=== PATIENT | male | born 1955 | race Caucasian/White ===

== ENCOUNTER → 2018-02-06 | Outpatient (CLI) | payer BC ==
[~2018-02-06] MED LIST: AMLO5 PO; ATOR10 PO; FENO145 PO; METO100ER PO; Metformin HCl1000 MG PO; VALSARTAN-HCTZ1 EAC3 PO
[2018-02-06 12:58] LABS: Anion Gap 9 mmol/L (6-16); Blood Urea Nitrogen 10 mg/dL (8-24); Bun/Creatinine Ratio 11.5 (12.0-20.0); CO2, Blood 26 mmol/L (21-32); Chloride, Blood 102 mmol/L (98-108); Creatinine, Blood 0.87 mg/dL (0.60-1.20); Glomerular Filtration Rate >60 (60-); Glucose, Blood 152 mg/dL (70-99); Potassium, Blood 3.5 mmol/L (3.5-5.5); Sodium, Blood 137 mmol/L (136-145)
[2018-02-06 13:22] LABS: BASOPHILS ABSOLUTE AUTO 0.06 K/mm3 (0.00-0.23); BASOPHILS PERCENT AUTO 0 % (0-2); EOSINOPHILS ABSOLUTE AUTO 0.01 K/mm3 (0.00-0.68); EOSINOPHILS PERCENT AUTO 0 % (0-6); Hematocrit 41.5 % (37.0-53.0); Hemoglobin 14.2 g/dL (13.5-17.5); IMMATURE GRAN ABSOLUTE AUTO 0.11 K/mm3 (0.00-0.10); IMMATURE GRAN PERCENT AUTO 1 % (0-1); LYMPHOCYTES ABSOLUTE AUTO 1.85 K/mm3 (0.84-5.20); LYMPHOCYTES PERCENT AUTO 9 % (21-46); MONOCYTES PERCENT AUTO 8 % (4-13); Mean Corpuscular HGB 30.9 pg (26.0-34.0); Mean Corpuscular HGB Conc 34.2 g/dL (31.5-36.5); Mean Corpuscular Volume 90 fL (80-100); Mean Platelet Volume 10.1 fL (9.1-12.4); NEUTROPHILS ABSOLUTE AUTO 17.17 K/mm3 (1.96-9.15); NEUTROPHILS PERCENT AUTO 82 % (41-73); Platelet Count 236 K/mm3 (150-400); RDW Standard Deviation 42.5 fL (35.1-46.3)
== END | disposition home or self-care (01) ==
LOC: LAB 12:05 → LAB SHORT 12:05
PROVIDERS: Physician Assistant
DX: R50.9 Fever, unspecified (principal)
CPT/HCPCS: 80048; 83036; 85025; 87077; 87086; 87186

== ENCOUNTER → 2018-02-07 | Outpatient (CLI) | payer BC ==
[2018-02-07 11:39] LABS: BASOPHILS ABSOLUTE AUTO 0.06 K/mm3 (0.00-0.23); BASOPHILS PERCENT AUTO 0 % (0-2); EOSINOPHILS ABSOLUTE AUTO 0.06 K/mm3 (0.00-0.68); EOSINOPHILS PERCENT AUTO 0 % (0-6); Hematocrit 40.2 % (37.0-53.0); IMMATURE GRAN ABSOLUTE AUTO 0.09 K/mm3 (0.00-0.10); IMMATURE GRAN PERCENT AUTO 1 % (0-1); LYMPHOCYTES ABSOLUTE AUTO 1.86 K/mm3 (0.84-5.20); LYMPHOCYTES PERCENT AUTO 12 % (21-46); MONOCYTES ABSOLUTE AUTO 0.91 K/mm3 (0.16-1.47); MONOCYTES PERCENT AUTO 6 % (4-13); Mean Corpuscular HGB 31.3 pg (26.0-34.0); Mean Corpuscular HGB Conc 34.8 g/dL (31.5-36.5); Mean Corpuscular Volume 90 fL (80-100); NEUTROPHILS PERCENT AUTO 81 % (41-73); Platelet Count 213 K/mm3 (150-400); RDW Coefficient Variation 13.2 % (11.7-14.2); RDW Standard Deviation 43.5 fL (35.1-46.3); Red Blood Cell Count 4.48 M/mm3 (4.30-5.90); White Blood Cell Count 15.98 K/mm3 (4.00-11.30)
== END | disposition home or self-care (01) ==
LOC: LAB 11:02 → LAB SHORT 11:02
PROVIDERS: Physician Assistant
DX: R53.83 Other fatigue (principal)
CPT/HCPCS: 85025

== ENCOUNTER 2019-12-20 05:18 | Inpatient (IN) | payer BC, MEDICARE, OTHER ==
[~2019-12-20] VITALS: Ht 182.9 cm; Wt 125.5 kg
[2019-12-20 05:34] LABS: BASOPHILS ABSOLUTE AUTO 0.06 K/mm3 (0.00-0.23); BASOPHILS PERCENT AUTO 1 % (0-2); EOSINOPHILS PERCENT AUTO 2 % (0-6); Hematocrit 35.3 % (37.0-53.0); IMMATURE GRAN ABSOLUTE AUTO 0.05 K/mm3 (0.00-0.10); IMMATURE GRAN PERCENT AUTO 0 % (0-1); LYMPHOCYTES ABSOLUTE AUTO 2.62 K/mm3 (0.84-5.20); LYMPHOCYTES PERCENT AUTO 20 % (21-46); MONOCYTES ABSOLUTE AUTO 1.22 K/mm3 (0.16-1.47); MONOCYTES PERCENT AUTO 9 % (4-13); Mean Corpuscular HGB 31.1 pg (26.0-34.0); Mean Corpuscular Volume 92 fL (80-100); Mean Platelet Volume 9.5 fL (9.1-12.4); NEUTROPHILS PERCENT AUTO 68 % (41-73); Platelet Count 247 K/mm3 (150-400); RDW Coefficient Variation 12.9 % (11.7-14.2); RDW Standard Deviation 42.8 fL (35.1-46.3); Red Blood Cell Count 3.86 M/mm3 (4.30-5.90); White Blood Cell Count 12.95 K/mm3 (4.00-11.30)
[2019-12-20 05:58] LABS: Alanine Aminotransfer (ALT/SGP 20 U/L (12-78); Albumin, Blood 2.9 g/dL (3.4-5.0); Albumin/Globulin Ratio 0.7 (0.8-1.8); Alk Phos 43 U/L (50-136); Anion Gap 12 mmol/L (6-16); Aspartate Aminotrans (AST/SGOT 21 U/L (12-37); Bilirubin, Total 0.9 mg/dL (0.1-1.0); Blood Urea Nitrogen 16 mg/dL (8-24); Bun/Creatinine Ratio 20.9 (12.0-20.0); CO2, Blood 24 mmol/L (21-32); Calcium, Blood 8.4 mg/dL (8.5-10.1); Chloride, Blood 103 mmol/L (98-108); Creatinine, Blood 0.77 mg/dL (0.60-1.20); Glomerular Filtration Rate >60 (60-); Glucose, Blood 153 mg/dL (70-99); Potassium, Blood 2.7 mmol/L (3.5-5.5); Sodium, Blood 139 mmol/L (136-145); Total Protein, Blood 6.9 g/dL (6.4-8.2)
[2019-12-20 06:12] LABS: Troponin I 0.727 ng/mL (0.000-0.040)
[2019-12-20 06:15] LABS: Calcium, Ionized (POC) 1.05 mmol/L (1.10-1.46); Chloride (POC) 100 mmol/L (98-108); Creatinine (POC) 0.8 mg/dL (0.8-1.3); Glucose (ISTAT POC) 154 mg/dL (70-99); Hemoglobin (POC) 11.2 g/dL (13.5-17.5); Potassium (POC) 2.9 mmol/L (3.5-5.5); Sodium (POC) 138 mmol/L (135-148); Total CO2 (POC) 24 mmol/L (21-32)
[2019-12-20] MEDS ORDERED: MELO7.5 PO (08:06)
[2019-12-20] MEDS ORDERED: CANDESARTAN CIL32 MG PO (08:07)
--- NOTE | 2019-12-20 09:57 | NUR ---
ADMIT PT ARRIVED TO ICU 5, ALERT AND ORIENTED, ON NONREBREATHER BUT RT ARRIVED WITH PT TO SET UP AIRVO. PT GETS DYSPENIC WITH TALKING, BUT IS STILL ABLE TO TALK IN FULL SENTENCES. DR. MASSEY AT THE BEDSIDE. ULTRASOUND NOTIFIED THAT PT ARRIVED AND IS AVAILABLE FOR STUDIES. PT'S WAS WAITING IN THE LOUNGE. SPOKE WITH HER AND EXPLAINED CURRENT VISITING RESTRICTIONS. PROVIDED HER WITH CARD WITH ICU PHONE NUMBER AND ALSO PUT PT'S ROOM NUMBER IN THE WINDOW SO SHE CAN STOP BY AND SEE HIM IF SHE WANTS. PT'S ALSO PROVIDED PT'S CELL PHONE FOR HIM. SPOKE WITH DR. MASSEY AND RECEIVED ORDERS FOR POTASSIUM REPLACEMENT. PLAN IS TO MONITOR IONIZED CALCIUM FOR NOW, NO REPLACEMENT AT THIS TIME. DR. MASSEY EXPLAINED PLAN OF CARE FOR PT AND PT VERBALIZED UNDERSTANDING. CONTINUING TO MONITOR.
--- NOTE | 2019-12-20 12:48 | NUR ---
REASSESSMENT PT RESTING IN BED, JUST FINISHED SPEAKING WITH DR. APARICIO. PLAN IS FOR PT TO GO TO CLERICAL AIDE TEACHER THIS AFTERNOON. PT'S TO COME BY FOR QUICK VISIT BEFORE PT LEAVES. PT REMAINS DYSPNEIC AT REST BUT ABLE TO TALK IN FULL SENTENCES. HE DOES DESAT TO THE MID 80S WITH LOTS OF TALKING. SR TO ST WITH RATE IN THE 90-LOW 100S WITH FREQUENT PVCS AT TIMES. HTN WITH SBP 140-160S. VENOUS DUPLEX AND ECHO COMPLETE. PT BEING HELD NPO UNTIL PROCEDURE. CONTINUING TO MONITOR.
--- NOTE | 2019-12-20 13:32 | NUR ---
Echocardiogram using 0.50ml of Definity contrast performed.
--- NOTE | 2019-12-20 17:55 | NUR ---
PT BACK FROM ENGINEERING SYSTEMS ANALYST ABOUT 1700. R GROIN SITE WITH BILAT EKOS. HEPARIN AND TPA SET UP PER ORDERS. GROIN SITE C/D/I, SOFT, NO SIGNS OF HEMATOMA. PT REMAINS ON AIRVO AT 60L AND 95% WITH SPO2 94%. SR, BP STABLE, SEE VITALS. DR. APARICIO UPDATED PT'S AND PT CALLED HER HIMSELF WELL. LUNGS REMAIN CLEAR. PULSE STRONG TO R FOOT. CONTINUING TO MONITOR.
--- NOTE | 2019-12-20 20:00 | NUR ---
ASSUMED PT CARE FROM [facility] AT 1915 PT LYING SUPINE IN BED WITH 10F DUAL CATHETER SHEATH IN PLACE TO RIGHT GROIN FOR EKOS. HEPARIN INFUSING VIA BOTH PORTS AT 2.36 UNITS/KG/HR WITH A DOSING WEIGHT OF 127KG WITH AN INFUSION RATE OF 6MLS/HR, TPA INFUSING VIA BOTH PORTS AT 1MG/HR AT A RATE OF 10MLS/HR. NS INFUSING VIA BOTH COOLANT PORTS AT 35MLS/HR. SITE IS SOFT, NON-TENDER WITH NO OOZING OR HEMATOMA NOTED. PT DENIES ANY TENDERNESS. PT APPEARS TO BE ALERT AND ORIENTED AND ABLE TO MAKE NEEDS KNOWN. VERY PLEASANT AND COOPERATIVE WITH CARES. CALL LIGHT WITHIN REACH. WILL CONTINUE TO MONITOR.
[2019-12-21 02:18] LABS: Anion Gap 6 mmol/L (6-16); Blood Urea Nitrogen 17 mg/dL (8-24); Bun/Creatinine Ratio 27.7 (12.0-20.0); CO2, Blood 26 mmol/L (21-32); Calcium, Blood 7.8 mg/dL (8.5-10.1); Chloride, Blood 110 mmol/L (98-108); Creatinine, Blood 0.61 mg/dL (0.60-1.20); Glomerular Filtration Rate >60 (60-); Glucose, Blood 156 mg/dL (70-99); Potassium, Blood 3.1 mmol/L (3.5-5.5); Sodium, Blood 142 mmol/L (136-145)
[2019-12-21 02:22] LABS: BASOPHILS ABSOLUTE AUTO 0.08 K/mm3 (0.00-0.23); BASOPHILS PERCENT AUTO 1 % (0-2); EOSINOPHILS ABSOLUTE AUTO 0.25 K/mm3 (0.00-0.68); EOSINOPHILS PERCENT AUTO 3 % (0-6); Hematocrit 31.2 % (37.0-53.0); Hemoglobin 10.7 g/dL (13.5-17.5); IMMATURE GRAN ABSOLUTE AUTO 0.06 K/mm3 (0.00-0.10); IMMATURE GRAN PERCENT AUTO 1 % (0-1); LYMPHOCYTES ABSOLUTE AUTO 1.71 K/mm3 (0.84-5.20); LYMPHOCYTES PERCENT AUTO 19 % (21-46); MONOCYTES ABSOLUTE AUTO 0.82 K/mm3 (0.16-1.47); MONOCYTES PERCENT AUTO 9 % (4-13); Mean Corpuscular HGB 31.3 pg (26.0-34.0); Mean Corpuscular HGB Conc 34.3 g/dL (31.5-36.5); Mean Corpuscular Volume 91 fL (80-100); Mean Platelet Volume 9.8 fL (9.1-12.4); NEUTROPHILS ABSOLUTE AUTO 6.11 K/mm3 (1.96-9.15); NEUTROPHILS PERCENT AUTO 68 % (41-73); Platelet Count 219 K/mm3 (150-400); RDW Standard Deviation 43.1 fL (35.1-46.3); Red Blood Cell Count 3.42 M/mm3 (4.30-5.90); White Blood Cell Count 9.03 K/mm3 (4.00-11.30)
--- NOTE | 2019-12-21 05:15 | NUR ---
END OF SHIFT SUMMARY NO SIGNIFICANT CHANGES SINCE LAST ENTRY. PT REMAINS ON EKOS WITH RIGHT GROIN SHEATH INFUSING HEPARIN 3.1 UNITS/KG/HR; RATE 6MLS/HR, TPA 0.5 MG/HR, AND NS 35MLS/HR THROUGH EACH PORT. SITE HAS REMAINED SOFT, NON-TENDER, WITH MODERATE SEROSANGUINEOUS DRAINAGE NOTED ON GAUZE DRESSING. RIGHT PEDAL PULSE REMAINS PALPABLE AND STRONG. PT HAS DENIED ANY PAIN/DISCOMFORT. AIRVO REMAINS AT 50L/MIN WITH 48% FIO2; BIOX REMAINED MID TO HIGH 90'S; RESP RATE HAS BEEN 20'S. PT BECOMES TACHYPNEIC AND SOB WITH EXERTION, ESPECIALLY WITH TURNING/REPOSITIONING FOR BEDPAN USE. HOWEVER, OXYGEN SATURATIONS REMAIN STABLE AND PT QUICKLY RECOVERS. LUNG SOUNDS HAVE REMAINED CLEAR T/O ALL LOBES THIS SHIFT. NSR WITH BBB; HR 70-90'S. BP'S STABLE; SEE FLOWSHEET. PT HAS HAD TWO LOOSE STOOLS THIS SHIFT; HELD DSS. VOIDS WITH URINAL; DARK CHARLES COLORED URINE. PT HAS REMAINED ALERT AND ORIENTED X4; ABLE TO COMMUNICATE NEEDS. NO FACIAL DROOP OR SLURRED SPEECH NOTED. PUPILS REMAIN EQUAL, ROUND, AND REACTIVE TO LIGHT; 4MM. LEFT ARM REMAINS IN IMMOBILIZER. AQUACEL DRESSING IS CDI TO LEFT SHOULDER. PT STATES IT IS NOT TO BE REMOVED UNTIL FOLLOW UP APPT WITH SURGEON AT [facility]. PT STATED HE WOULD UTILIZE CALL LIGHT TO REQUEST REPOSITIONING WHEN NEEDED. HE IS ABLE TO SLIGHTLY SHIFT HIS OWN HIPS; HOWEVER, PT HAS BEEN ASSISTED WITH BEDPAN AND URINAL T/O NIGHT, WELL BOOSTED IN BED NEEDED. SEE ADL CHARTING. CALL LIGHT WITHIN REACH; PT ABLE TO DEMONSTRATE ADEQUATE USE OF CALL LIGHT. WILL CONTINUE TO MONITOR UNTIL REPORT IS HANDED OFF TO ONCOMING RN.
--- NOTE | 2019-12-21 09:13 | NUR ---
[place] of Care: Care assumed at 0700hr. Patient sleeping, but easily roused to verbal stimuli. Alert and oriented x4. Denies pain, discomfort, SOB, or dyspnea. SpO2-97-100% on Airvo NC at 50L/48%. Plan to decrease Airvo FiO2 and flow this morning and switch to NC as tolerated. Eko's infusing to rt femoral arterial access site. Rt femoral arterial line contains x2 ports, each infusing with TPA, Heparin, and NS. Dosing of medications to rt femoral line confirmed with EMAR and NOC shift RN. Rt femoral site soft, no s/s of active bleeding, but very slowly oozing serosanguineous fluid, dressing remains intact. Peripheral IV's x2 patent and intact. Call light in reach, makes needs known. Requires assist with bedpan or urinal in bed. Immobilizing sling to lt arm (r/t shoulder surgery 11/18) in place. Also Aquacel dressing in place to lt shoulder, dressing C/D/I. Call placed to Dr. Worthy this morning to confirm scheduled Lovenox injection. Received instructions to give scheduled Lovenox injection, also informed that Dr. Worthy plans to remove Ekos's catheter in patient room at approx 1000hr.
--- NOTE | 2019-12-21 16:45 | NUR ---
Shift Summary/ Transfer to PCU: Dr. Ham to room at approx 1200hr to remove Echo's catheter from rt groin. Catheters removed without difficulty, then instructed to wait 1hr to remove venous sheath. Rt femoral venous sheath then removed at approx 1310hr. Direct pressure held to site for 10min, but showed large amount of bleeding when pressure relieved. Direct pressure then held for 20min, gauze and clear occlusive dressing left in place. No s/s of bleeding or hematoma from site for remainder of time in ICU. Received order to transfer patient to PCU per Dr. Atnunez. Bed assignment received from Xi STEWART, PCU 16. Report called to Shannen STEWART in PCU. Patient then transferred via bed to PCU 16 at 1635hr. Rt groin site visualized/assessed with MULTI LINE CLAIMS ADJUSTER, site remains stable. belonging's sent with patient to new room.
--- NOTE | 2019-12-21 18:53 | NUR ---
SHIFT NOTE PT ARRIVED FROM ICU THIS EVENING WITH PE. PT HAD ECOS REMOVED THIS AFTERNOON, THERE IS GUAZE AND TEGADERM APPLIED TO SITE. THERE IS SOME BLOOD TO GAUZE, BUT PER CLAUDIA FROM ICU THE BLOOD HAS NOT INCREASED. THERE IS SOME SLIGHT FIRMNESS TO SKIN AROUND ECOS SITE, NO BRUISING. PT RESTING WELL IN BED. VSS. DENIES CP AND SOB. PT ON RA AT THIS TIME
--- NOTE | 2019-12-22 06:28 | NUR ---
SHIFT SUMMARY PT A&O X4. VSS. MONITOR SHOWS NSR. SPO2 > 92% ON RA. R FEM SITE SOFT, NONTENDER W/ NO BLEEDING. L ARM REMAINS IN SLING. PT REQUIRING 2 PERSON ASSISTNANCE FOR IN BED REPOSITIONING & URINAL USE. PT WEARING ATTENDS FOR SOME BOWEL INCONTINENCE. PT W/ 2 LOOSE, BROWN BM's THIS SHIFT. WILL CONTINUE TO MONITOR AND PROVIDE CARE UNTIL REPORT OFF TO DAY SHIFT RN.
--- NOTE | 2019-12-22 07:45 | NUR ---
AM ASSESSMENT: Pt resting in bed. States that he is feeling good. hopeful to be discharged today. VSS. LS diminished. Pt appears to be slightly SOB but states that he doesn't feel that way and that he feels fine. BIox 93% on RA. L shoulder dressing intact, no redness, oozing or bleeding noted. R groin site intact with no redness, bruising, oozing or bleeding noted. Pt Denies pain. Call light in reach. Will monitor.
[2019-12-22] MEDS ORDERED: XARELTO15 MG PO (12:07)
[2019-12-22] MEDS ORDERED: XARELTO20 MG PO (12:07)
--- NOTE | 2019-12-22 13:00 | NUR ---
UPDATE: Pt was getting up to put on prosthetic for discharge and became SOB. Biox was down to 83% on RA. Placed on 4L nc and biox increased to 90%. Pt states that he feels much better now and still wants to go home. Physician called for home o2 evaluation order. Pharmacy also requiring pre-authorization for the xerelto rx. Physician was informed. Will continue to monitor and treat.
--- NOTE | 2019-12-22 15:45 | NUR ---
DISCHARGE: [facility] pharmacy agreed to fill RX with xerelto coupon available from hospital. Home o2 eval was completed and is being sent home with 2L per NC at all times. Filippo dropped off home O2. VSS. IV's were discontinued, cath's intact. Pt and his spouse were given verbal and written discharge instructions. Denies questions. Stable at time of discharge. Left via w/c with PATIENT SERVICES TECHNICIAN.
== END 2019-12-22 15:44 | disposition home or self-care (01) | DRG 175 ==
LOC: ER 05:18 → ICUE 08:11 → ICUW 08:11 → PCU 08:11 → ICUE 08:46 → PCU 12-21 16:35
PROVIDERS: Emergency Medicine; ADMIT Hospitalist
PROC: B31T1ZZ Fluoroscopy of Left Pulmonary Artery using Low Osmolar Contrast (ICD-10-PCS; principal; 2019-12-20)
PROC: B31S1ZZ Fluoroscopy of Right Pulmonary Artery using Low Osmolar Contrast (ICD-10-PCS; 2019-12-20)
PROC: 3E06317 Introduction of Other Thrombolytic into Central Artery, Percutaneous Approach (ICD-10-PCS; 2019-12-20)
DX: I26.99 Other pulmonary embolism without acute cor pulmonale (principal); J96.01 Acute respiratory failure with hypoxia; I10 Essential (primary) hypertension; Z79.84 Long term (current) use of oral hypoglycemic drugs; E78.5 Hyperlipidemia, unspecified; E87.6 Hypokalemia; D72.829 Elevated white blood cell count, unspecified; Z89.612 Acquired absence of left leg above knee; Z68.37 Body mass index [BMI] 37.0-37.9, adult; E66.9 Obesity, unspecified; Z96.612 Presence of left artificial shoulder joint
CPT/HCPCS: 36014; 36415; 37211; 71260; 75743; 80047; 80048; 80053; 83880; 84484; 85014; 85025; 85384; 93005; 93010; 93970; 96360-59; 97162; 99285-25; A9270; C1757; C1769; C1894; C8929; J1644; J1650; J2997; J3480; J7030; J7050; Q9957; Q9967

== ENCOUNTER → 2021-11-20 | Outpatient (CLI) | payer BC ==
[~2021-11-20] MED LIST changes: +ALLERCLEAR10 MG PO; +CANDESARTAN CIL32 MG PO; +CENTRUM SILVER1 EAC2 PO; +CRANBERRY500 M1 PO; +HYDCHL12.5 PO; +LOSA50 PO; +MELO7.5 PO; +XARELTO15 MG PO; +XARELTO20 MG PO
== END | disposition home or self-care (01) ==
LOC: LAB SHORT 11:20 → LAB 11:20
DX: R30.0 Dysuria (principal)
CPT/HCPCS: 87077; 87086; 87186

== ENCOUNTER 2021-11-23 09:22 | Inpatient (IN) | payer BC ==
[~2021-11-23] VITALS: Ht 182.9 cm; Wt 130.1 kg
[~2021-11-23 09:22] MED LIST changes: -ALLERCLEAR10 MG PO; -CENTRUM SILVER1 EAC2 PO; -CRANBERRY500 M1 PO; -HYDCHL12.5 PO; -LOSA50 PO
[2021-11-23 10:11] LABS: Source, Urine Clean Catch
[2021-11-23 10:18] LABS: Appearance, Urine Clear (Clear); Bilirubin, Urine Neg (Neg); Blood, Urine 3+ (Neg); Color, Urine Yellow (P-Yellow); Glucose Qualitative, Urine Neg (Neg); Ketones, Urine Neg (Neg); Leukocyte Esterase, Urine Neg (Neg); Nitrite, Urine Neg (Neg); Protein, Urine 2+ (Neg); Specific Gravity, Urine 1.015 (1.003-1.022); Urobilinogen, Urine NORM (Normal)
[2021-11-23 10:41] LABS: Bacteria Not Seen /hpf; Squamous Epithelial Cells Few /hpf (Few); White Blood Cells, Urine Not Seen /hpf (0-5)
[2021-11-23 11:09] LABS: BASOPHILS ABSOLUTE AUTO 0.05 K/mm3 (0.00-0.23); BASOPHILS PERCENT AUTO 1 % (0-2); Hemoglobin 13.1 g/dL (13.5-17.5); Mean Corpuscular HGB 30.6 pg (26.0-34.0); Mean Corpuscular HGB Conc 35.4 g/dL (31.5-36.5); Mean Corpuscular Volume 86 fL (80-100); Mean Platelet Volume 10.8 fL (9.1-12.4); RDW Coefficient Variation 13.9 % (11.7-14.2); RDW Standard Deviation 43.8 fL (35.1-46.3); Red Blood Cell Count 4.28 M/mm3 (4.30-5.90); White Blood Cell Count 5.19 K/mm3 (4.00-11.30)
[2021-11-23 11:14] LABS: Albumin, Blood 2.3 g/dL (3.4-5.0); Albumin/Globulin Ratio 0.5 (0.8-1.8); Bilirubin, Total 1.4 mg/dL (0.1-1.0); Bun/Creatinine Ratio 21.5 (12.0-20.0); Calcium, Blood 8.5 mg/dL (8.5-10.1); Creatinine, Blood 2.42 mg/dL (0.60-1.20); Globulin, Blood 4.2 g/dL (2.2-4.0); Total Protein, Blood 6.5 g/dL (6.4-8.2)
[2021-11-23 11:26] LABS: EOSINOPHILS ABSOLUTE AUTO 0.02 K/mm3 (0.00-0.68); EOSINOPHILS PERCENT AUTO 0 % (0-6); IMMATURE GRAN ABSOLUTE AUTO 0.02 K/mm3 (0.00-0.10); IMMATURE GRAN PERCENT AUTO 0 % (0-1); LYMPHOCYTES ABSOLUTE AUTO 0.12 K/mm3 (0.84-5.20); LYMPHOCYTES PERCENT AUTO 2 % (21-46); MONOCYTES ABSOLUTE AUTO 0.07 K/mm3 (0.16-1.47); MONOCYTES PERCENT AUTO 1 % (4-13); NEUTROPHILS ABSOLUTE AUTO 4.91 K/mm3 (1.96-9.15); NEUTROPHILS PERCENT AUTO 95 % (41-73)
[2021-11-23 11:34] LABS: Platelet Count 97 K/mm3 (150-400)
[2021-11-23 14:22] LABS: Influenza A, PCR NEGATIVE (NEGATIVE); Influenza B, PCR NEGATIVE (NEGATIVE); Resp Syncytial Virus, PCR NEGATIVE (NEGATIVE); SARS-Cov-2 (COVID-19) PCR, MMC NEGATIVE (NEGATIVE)
[2021-11-23] MEDS ORDERED: HYDCHL12.5 PO (16:18)
[2021-11-23] MEDS ORDERED: LOSA50 PO (16:19)
[2021-11-23] MEDS ORDERED: AMLO5 PO (16:19)
[2021-11-23] MEDS ORDERED: CENTRUM SILVER1 EAC2 PO (16:21)
[2021-11-23] MEDS ORDERED: ALLERCLEAR10 MG PO (16:21)
[2021-11-23] MEDS ORDERED: CRANBERRY500 M1 PO (16:22)
--- NOTE | 2021-11-23 17:53 | NUR ---
SHIFT SUMMARY/ADMIT NOTE- PT ADMITTED THROUGH THE ED FOR IMPAIRED RENAL FUNCTION. PT HAS BEEN ON ABX FOR A UTI FOR SEVERAL DAYS, CAME IN TODAY FOR INCREASED WEAKNESS. PT HAS A Hx PE'S, PE STUDY NEGATIVE COVID NEGATIVE. PT CURRENTLY ON IVF, ADMIT COMPLETED AND MEDS RECONCILED. PT HAS HIS PROSTHETIC WITH HIM WELL HIS CANE AND HIS CRUTCH (HE STATES HE USES THE CRUTCH TO GET THE PROSTHETIC ON). PT HAS 2 IV'S, RENAL FUNCTION IS LOW AT THIS TIME ADMITTED FOR OBSERVATION. SPOUSE AT THE BEDSIDE PT SITTING UP AT THE EOB WITH THE CALL LIGHT IN REACH NO S&S OF DISTRESS NOTED WILL CTM AND PASS ON IN BEDSIDE REPORT TO NIGHT RN.
[2021-11-24 06:20] LABS: BASOPHILS ABSOLUTE AUTO 0.08 K/mm3 (0.00-0.23); BASOPHILS PERCENT AUTO 1 % (0-2); EOSINOPHILS PERCENT AUTO 0 % (0-6); Hematocrit 33.6 % (37.0-53.0); Hemoglobin 11.8 g/dL (13.5-17.5); IMMATURE GRAN ABSOLUTE AUTO 0.68 K/mm3 (0.00-0.10); IMMATURE GRAN PERCENT AUTO 5 % (0-1); LYMPHOCYTES ABSOLUTE AUTO 0.52 K/mm3 (0.84-5.20); LYMPHOCYTES PERCENT AUTO 4 % (21-46); MONOCYTES ABSOLUTE AUTO 1.13 K/mm3 (0.16-1.47); MONOCYTES PERCENT AUTO 8 % (4-13); Mean Corpuscular HGB Conc 35.1 g/dL (31.5-36.5); Mean Corpuscular Volume 88 fL (80-100); Mean Platelet Volume 10.8 fL (9.1-12.4); NEUTROPHILS ABSOLUTE AUTO 12.16 K/mm3 (1.96-9.15); NEUTROPHILS PERCENT AUTO 83 % (41-73); Platelet Count 79 K/mm3 (150-400); RDW Coefficient Variation 14.3 % (11.7-14.2); RDW Standard Deviation 46.1 fL (35.1-46.3); Red Blood Cell Count 3.81 M/mm3 (4.30-5.90); White Blood Cell Count 14.57 K/mm3 (4.00-11.30)
--- NOTE | 2021-11-24 06:22 | NUR ---
SHIFT SUMMARY PATIENT ALERT AND ORIENTED. HAD NO COMPLAINTS OF PAIN OR SHORTNESS OF BREATH. NO ACUTE ISSUES NOTED OVERNIGHT. CALL LIGHT WITHIN REACH. REPORT GIVEN TO ONCOMING RN.
[2021-11-24 06:28] LABS: Anion Gap 11 mmol/L (6-16); Blood Urea Nitrogen 54 mg/dL (8-24); CO2, Blood 22 mmol/L (21-32); Chloride, Blood 102 mmol/L (98-108); Creatinine, Blood 2.57 mg/dL (0.60-1.20); Glomerular Filtration Rate 25 (60-); Glucose, Blood 183 mg/dL (70-99); Magnesium, Blood 2.4 mg/dL (1.6-2.4); Phosphorus, Blood 2.4 mg/dL (2.5-4.9); Potassium, Blood 3.2 mmol/L (3.5-5.5); Sodium, Blood 135 mmol/L (136-145)
[2021-11-24 07:11] LABS: BAND PERCENT MAN 3 % (0-8); BASOPHILS PERCENT MAN 0 % (0-2); EOSINOPHILS PERCENT MAN 0 % (0-6); LYMPHOCYTES ABSOLUTE MAN 0.43 K/mm3 (0.84-5.20); LYMPHOCYTES PERCENT MAN 3 % (21-46); MONOCYTES ABSOLUTE MAN 0.29 K/mm3 (0.16-1.47); MONOCYTES PERCENT MAN 2 % (4-13); MYELOCYTE ABSOLUTE MAN 0.29 K/mm3 (0.00-0.00); MYELOCYTE PERCENT MAN 2 % (0-0); NEUTROPHILS ABSOLUTE MAN 13.55 K/mm3 (1.96-9.15); SEG NEUTROPHILS PERCENT MAN 90 % (41-73); TOTAL CELLS COUNTED 100
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
[2021-11-24 16:54] LABS: Bun/Creatinine Ratio 23.9 (12.0-20.0); Calcium, Blood 8.2 mg/dL (8.5-10.1); Creatinine, Blood 2.26 mg/dL (0.60-1.20); Potassium, Blood 3.5 mmol/L (3.5-5.5)
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
--- NOTE | 2021-11-25 04:14 | NUR ---
TEMPERATURE 102.2 AND TYLENOL 50O MG GIVEN PER EMAR. BLANKETS PULLED DOWN AND ROOM HEAT LOWERED. PATIENT FAN ON. WCTM.
--- NOTE | 2021-11-25 04:15 | NUR ---
SHIFT SUMMARY PATIENT TEMPERATURE 102.2 AND TYLENOL 500 MG GIVEN PER EMAR. AXOX 4 AND BEDREST. LBKA. ON 3L O2 NC AND RA BASELINE. SOB W/EXERTION. PIV REMAINS INTACT. LR FINISHED INFUSING AT 200 mL/HR X ONE. DENIES PAIN AND N/V. VSS/FEBRILE. HOME CPAP ON STATING 92 % ON CONTINUOUS PULSE OXIMETRY. SPOUSE PRESENT AT SHIFT CHANGE FOR A FEW HOURS. CALL LIGHT IN REACH. BED IN LOWEST POSITION. WILL CONTINUE TO MONITOR UNTIL DAY SHIFT NURSE ASSUMES CARE.
--- NOTE | 2021-11-25 05:30 | NUR ---
TEMPERATURE RECHECK 98.3 WITH HR 94. WCTM
[2021-11-25 06:06] LABS: Hematocrit 33.1 % (37.0-53.0); Hemoglobin 11.6 g/dL (13.5-17.5); Mean Corpuscular HGB 30.4 pg (26.0-34.0); Mean Corpuscular Volume 87 fL (80-100); Mean Platelet Volume 11.1 fL (9.1-12.4); Platelet Count 65 K/mm3 (150-400); RDW Coefficient Variation 14.4 % (11.7-14.2); RDW Standard Deviation 45.5 fL (35.1-46.3); Red Blood Cell Count 3.82 M/mm3 (4.30-5.90); White Blood Cell Count 10.47 K/mm3 (4.00-11.30)
[2021-11-25 06:28] LABS: Bun/Creatinine Ratio 25.8 (12.0-20.0); Calcium, Blood 8.2 mg/dL (8.5-10.1); Creatinine, Blood 1.86 mg/dL (0.60-1.20); Potassium, Blood 3.4 mmol/L (3.5-5.5)
[2021-11-25 07:06] LABS: BAND PERCENT MAN 13 % (0-8); BASOPHILS PERCENT MAN 0 % (0-2); EOSINOPHILS PERCENT MAN 0 % (0-6); LYMPHOCYTES ABSOLUTE MAN 0.62 K/mm3 (0.84-5.20); LYMPHOCYTES PERCENT MAN 6 % (21-46); MONOCYTES ABSOLUTE MAN 0.94 K/mm3 (0.16-1.47); MONOCYTES PERCENT MAN 9 % (4-13); NEUTROPHILS ABSOLUTE MAN 8.89 K/mm3 (1.96-9.15); SEG NEUTROPHILS PERCENT MAN 72 % (41-73); TOTAL CELLS COUNTED 100
--- NOTE | 2021-11-25 13:31 | NUR ---
PATIENT WAS JUST SITTING UP TO EAT LUNCH WHEN i ENTERED HIS ROOM TO SEE HIM VISIBLY SHAKING. HE REPORTS THAT "ITS HAPPENING AGAIN", EXPLAINING THAT HE HAS THESE SHAKY EPISODES ONCE IN A WHILE. HE DESCRIBES THEM STARTING IN HIS CORE, LIKE A DEEP CHILL, AND MOVING OUT ALL OVER HIS BODY, WHICH ACTUALLY TREMORS. I COULD HEAR HIS BREATHING, RAPID, LIKE HE WAS SOB AT THAT TIME. SA02 WAS WNL, BUT HE IS ON 2 L NC. AT HOME HE IS NOT ON 02. THIS EPISODE LASTED ABOUT 30 MINUTES. HIS PULSE IS STILL 105. WAS NOTIFED.
[2021-11-25 13:59] LABS: Bun/Creatinine Ratio 26.2 (12.0-20.0); Calcium, Blood 8.6 mg/dL (8.5-10.1); Creatinine, Blood 1.64 mg/dL (0.60-1.20); Potassium, Blood 3.3 mmol/L (3.5-5.5)
--- NOTE | 2021-11-25 18:30 | NUR ---
PATIENT WAS RUNNING 02 AT 2 L FOR MOST OF THE DAY. THIS EVENING, THE 02 WAS SHUT OFF. HE HAS TOLERATED 0 L FOR THE PAST COUPLE HOURS MAINTAINING SA02. HE WAS RUNNING A TEMP OF 101.4 THIS AFTERNOON, SO TYLENOL WAS GIVEN. PATIENTS k+ WAS STILL LOW AFTER THE IV BAG THIS MORNING SO ANOTHER 2 IV BAGS WERE PRESCRIBED. LABS ARE NOT WITHIN LIMITS- PATIENT WILL BE HERE AT LEAST TONIGHT HE'LL HOPEFULLY BE ABLE TO DISCHARGE TO HOME TOMORROW.
--- NOTE | 2021-11-26 04:11 | NUR ---
SHIFT SUMMARY: PT A/OX4, STAND AND PIVOT - STAND BY ASSIST WHEN NECESSARY. PT TURNS AND REPOSITIONS SELF IN BED. CPAP IN USE, RESPIRATORY CONTACTED DUE TO O2 DESATURATION WHILE SLEEPING AND CPAP IN PLACE, 2L O2 ADDED TO CPAP- FOLLOWING O2 SATURATIONS REMAINED ABOVE 90%. NO COMPLAINTS OF PAIN OR DISCOMFORT THROUGHOUT SHIFT, PT REPORTS FEELING SIGNIFICANTLY BETTER. BED IN LOW POSITION, BED ALARM ACTIVATED, CALL PANDA IN REACH.
[2021-11-26 06:16] LABS: Hematocrit 35.4 % (37.0-53.0); Mean Corpuscular HGB Conc 33.9 g/dL (31.5-36.5); Mean Corpuscular Volume 89 fL (80-100); Mean Platelet Volume 11.4 fL (9.1-12.4); Platelet Count 86 K/mm3 (150-400); RDW Coefficient Variation 14.7 % (11.7-14.2); RDW Standard Deviation 48.1 fL (35.1-46.3); White Blood Cell Count 10.16 K/mm3 (4.00-11.30)
[2021-11-26 06:17] LABS: Bun/Creatinine Ratio 26.4 (12.0-20.0); Calcium, Blood 8.1 mg/dL (8.5-10.1); Creatinine, Blood 1.4 mg/dL (0.60-1.20); Potassium, Blood 3.6 mmol/L (3.5-5.5)
[2021-11-26 06:47] LABS: BAND PERCENT MAN 14 % (0-8); BASOPHILS PERCENT MAN 1 % (0-2); EOSINOPHILS PERCENT MAN 1 % (0-6); LYMPHOCYTES ABSOLUTE MAN 0.91 K/mm3 (0.84-5.20); LYMPHOCYTES PERCENT MAN 9 % (21-46); MONOCYTES PERCENT MAN 4 % (4-13); NEUTROPHILS ABSOLUTE MAN 8.63 K/mm3 (1.96-9.15); SEG NEUTROPHILS PERCENT MAN 71 % (41-73); TOTAL CELLS COUNTED 100
--- NOTE | 2021-11-26 12:37 | NUR ---
Patient is lying in bed and waiting for a CT scan. Pt's spouse, Tia, is bedside. They tell that pt will most likely d/c today. They tell me about their family, their beloved dogs and their next steps as they pursue care as an out pt. They talk about their concerns about the kidney mass and what it might mean. I reinforce helpful attitudes and practices and provide empathic listening, pastoral drug abuse counselor and prayer. They respond well and show signs of increased peace. I will continue to remain available.
[2021-11-26 13:44] LABS: Bun/Creatinine Ratio 24.1 (12.0-20.0); Calcium, Blood 8.2 mg/dL (8.5-10.1); Creatinine, Blood 1.45 mg/dL (0.60-1.20); Potassium, Blood 4.2 mmol/L (3.5-5.5)
--- NOTE | 2021-11-26 14:06 | NUR ---
WHILE WALKING DOWN THE HALLWAY, I COULD HEAR THIS PATIENT WHEEZING. ENTERING THE ROOM, HE STATES "I'M HAVING ANOTHER EPISODE". HEART RATE WAS UP TO 133, PULSE OXIMITER 97% AND PATIENT WAS JUST PLACED BACK ON 3L.HE IS VISIBLY SHAKING, RED FACED. A CALL TO PROVIDER RESULETED IN DR. SHIPMAN COMING TO THE ROOM AND TALKING WITH THE PATIENT. HE ADVISED TYLENOL NOW, AND THEN HE PLANS TO ORDER BLOOD CULTURES.
--- NOTE | 2021-11-26 15:33 | NUR ---
PATIENT STATES THAT DR. MASSEY IS HIS TICKER WIRER. HE WOULD LIKE THIS KNOWN, INCASE ANY OF THE PROVIDERS HERE WOULD LIKE TO CONSULT WITH DR. MASSEY REGARDING THE SHAKING/TACHY/SOB EPISODES THAT HE HAS ON OCCASION.
--- NOTE | 2021-11-26 18:23 | NUR ---
PATIENT DOING BETTER THIS EVENING AFTER AN EVENTFUL MORNING OF ANOTHER EPISODE OF SHAKING AND SOB WITH TEMP. BLOOD CULTURES WERE ORDERED, ABX CHANGED. LR RUNNING. TEMP IS NOW BACK DOWN WNL. (MORE IN NURSING NOTES FROM EARLIER)
--- NOTE | 2021-11-27 05:39 | NUR ---
SHIFT SUMMARY: A/OX4, INDEPENDENT REPOSITIONING IN BED, LEFT LEG AMPUTATION-PROSTHESIS AT BEDSIDE. PT ABLE TO STAND AND PIVOT 1PERSON ASSIST. PATIENT REPORTS FEELING WELL THROUGHOUT SHIFT, NO COMPLAINTS OF CHILLS OR ANY FURTHER SUDDEN SHAKING EPISODES. BED IN LOW POSITION, CALL PANDA IN REACH. CALLS APPROPRIATELY.
[2021-11-27 06:38] LABS: BASOPHILS ABSOLUTE AUTO 0.04 K/mm3 (0.00-0.23); BASOPHILS PERCENT AUTO 0 % (0-2); EOSINOPHILS PERCENT AUTO 2 % (0-6); Hematocrit 32.2 % (37.0-53.0); IMMATURE GRAN ABSOLUTE AUTO 0.07 K/mm3 (0.00-0.10); IMMATURE GRAN PERCENT AUTO 1 % (0-1); LYMPHOCYTES PERCENT AUTO 10 % (21-46); MONOCYTES ABSOLUTE AUTO 0.86 K/mm3 (0.16-1.47); MONOCYTES PERCENT AUTO 7 % (4-13); Mean Corpuscular HGB 30.5 pg (26.0-34.0); Mean Corpuscular HGB Conc 34.2 g/dL (31.5-36.5); Mean Corpuscular Volume 89 fL (80-100); Mean Platelet Volume 11.4 fL (9.1-12.4); NEUTROPHILS PERCENT AUTO 80 % (41-73); Platelet Count 99 K/mm3 (150-400); RDW Coefficient Variation 14.9 % (11.7-14.2); RDW Standard Deviation 48.9 fL (35.1-46.3); Red Blood Cell Count 3.61 M/mm3 (4.30-5.90); White Blood Cell Count 12.57 K/mm3 (4.00-11.30)
[2021-11-27 06:57] LABS: Anion Gap 9 mmol/L (6-16); Blood Urea Nitrogen 31 mg/dL (8-24); CO2, Blood 23 mmol/L (21-32); Calcium, Blood 8.1 mg/dL (8.5-10.1); Chloride, Blood 108 mmol/L (98-108); Creatinine, Blood 1.07 mg/dL (0.60-1.20); Glomerular Filtration Rate >60 (60-); Glucose, Blood 125 mg/dL (70-99); Potassium, Blood 3.7 mmol/L (3.5-5.5); Sodium, Blood 140 mmol/L (136-145)
--- NOTE | 2021-11-27 18:24 | NUR ---
SHIFT SUMMARY PATIENT A&O. HX LEFT BKA. PATIENT USES PROSTHETIC LEG AND GETS UP TO CHAIR WITH FAMILY ASSISTANCE. NO SIGNIFICANT EVENTS T/O SHIFT. VSS. WILL CONTINUE TO MONITOR.
--- NOTE | 2021-11-28 04:06 | NUR ---
SHIFT SUMMARY: A/OX4, INDEPENDENT REPOSITIONING IN BED, STAND AND PIVOT. TO CHAIR. NO FEVERS THROUGHOUT SHIFT, NO SHAKING EPISODES. PATIENT REPORTS FEELING NORMAL AT BASELINE, NO PAIN REPORTED. BED IN LOW POSITION, CALL PANDA IN REACH. CPAP WORN AT REST WITH 5 L SUPPLEMENTAL O2 USED WITH CPAP SETTINGS.
[2021-11-28 04:57] LABS: BASOPHILS ABSOLUTE AUTO 0.06 K/mm3 (0.00-0.23); BASOPHILS PERCENT AUTO 0 % (0-2); EOSINOPHILS ABSOLUTE AUTO 0.19 K/mm3 (0.00-0.68); EOSINOPHILS PERCENT AUTO 1 % (0-6); Hemoglobin 10.9 g/dL (13.5-17.5); IMMATURE GRAN ABSOLUTE AUTO 0.25 K/mm3 (0.00-0.10); IMMATURE GRAN PERCENT AUTO 2 % (0-1); LYMPHOCYTES ABSOLUTE AUTO 1.35 K/mm3 (0.84-5.20); LYMPHOCYTES PERCENT AUTO 9 % (21-46); MONOCYTES PERCENT AUTO 6 % (4-13); Mean Corpuscular HGB 30.4 pg (26.0-34.0); Mean Corpuscular HGB Conc 34.1 g/dL (31.5-36.5); Mean Corpuscular Volume 89 fL (80-100); Mean Platelet Volume 10.8 fL (9.1-12.4); NEUTROPHILS ABSOLUTE AUTO 11.93 K/mm3 (1.96-9.15); NEUTROPHILS PERCENT AUTO 82 % (41-73); Platelet Count 153 K/mm3 (150-400); RDW Coefficient Variation 14.9 % (11.7-14.2); RDW Standard Deviation 48.6 fL (35.1-46.3); Red Blood Cell Count 3.59 M/mm3 (4.30-5.90); White Blood Cell Count 14.58 K/mm3 (4.00-11.30)
[2021-11-28 05:12] LABS: Anion Gap 6 mmol/L (6-16); Blood Urea Nitrogen 22 mg/dL (8-24); CO2, Blood 24 mmol/L (21-32); Calcium, Blood 8.1 mg/dL (8.5-10.1); Chloride, Blood 109 mmol/L (98-108); Glomerular Filtration Rate >60 (60-); Glucose, Blood 131 mg/dL (70-99); Potassium, Blood 4.1 mmol/L (3.5-5.5); Sodium, Blood 139 mmol/L (136-145)
[2021-11-28] MEDS ORDERED: VISBIOME 112.51 EACH PO (10:49)
[2021-11-28] MEDS ORDERED: LEVO750 PO (10:50)
--- NOTE | 2021-11-28 11:47 | NUR ---
DISCHARGE SUMMARY PATIENT DISCHARGED HOME. DISCHARGE INSTRUCTIONS AND PRESCRIPTIONS REVIEWED WITH PATIENT. NEW PRESCRIPTIONS FAXED TO PREFERRED PHARMACY. PATIENT AND ALL BELONGINGS TAKEN VIA WHEELCHAIR TO PERSONAL VEHICLE AND TAKEN HOME BY .
== END 2021-11-28 11:43 | disposition home or self-care (01) | DRG 871 ==
LOC: ER 09:22 → MEDS 09:23
PROVIDERS: Emergency Medicine; Student in an Organized Health Care Education/Training Program; ADMIT Internal Medicine
DX: A41.51 Sepsis due to Escherichia coli [E. coli] (principal); J18.9 Pneumonia, unspecified organism; N17.9 Acute kidney failure, unspecified; N13.6 Pyonephrosis; R65.20 Severe sepsis without septic shock; E87.6 Hypokalemia; Z79.01 Long term (current) use of anticoagulants; R91.1 Solitary pulmonary nodule; Z86.711 Personal history of pulmonary embolism; Z89.612 Acquired absence of left leg above knee; I10 Essential (primary) hypertension; Z20.822 Contact with and (suspected) exposure to COVID-19; Z88.0 Allergy status to penicillin; Z88.8 Allergy status to other drugs, medicaments and biological substances; E66.9 Obesity, unspecified; E78.5 Hyperlipidemia, unspecified; Z90.49 Acquired absence of other specified parts of digestive tract; Z96.612 Presence of left artificial shoulder joint; N28.1 Cyst of kidney, acquired
CPT/HCPCS: 0241U; 36415; 71045; 71260; 74177; 76770; 80048; 80053; 80069; 81001; 82570; 83036; 83735; 84300; 85025; 87040; 93005; 93010; 94762; 99285-25; A9270; G0378; J0696; J1956; J2405; J3480; J7030; J7040; J7120; Q9967